=== PATIENT | male | born 2000 | race Caucasian/White ===

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

== ENCOUNTER 2022-04-10 11:36 | Emergency (ER) | payer OTHER, SELFPAY ==
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
[2022-04-10 11:53] VITALS: BP 135/78; PULSE 82; RESP 16; TEMP 36.3; O2SAT 98
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
[2022-04-10 12:54] VITALS: BP 113/74; PULSE 59; RESP 16; TEMP 36.4; O2SAT 100
== END 2022-04-10 12:56 | disposition home or self-care (01) ==
PROVIDERS: Emergency Provider Emergency Medicine; PCP Pediatrics
DX: S46.912A Strain of unspecified muscle, fascia and tendon at shoulder and upper arm level, left arm, initial encounter (principal); V89.2XXA Person injured in unspecified motor-vehicle accident, traffic, initial encounter
CPT/HCPCS: 73030; 73140; 99283